=== PATIENT | female | born 1980 | race Caucasian/White ===

== ENCOUNTER 2018-03-10 18:42 | Emergency (ER) | payer SELFPAY ==
[2018-03-10 19:23] VITALS: O2SAT 98
[2018-03-10] MEDS ORDERED: KETOROLAC TROMETHAMINE INJ 60 MG/2 ML VIAL IM ONE (19:35)
[2018-03-10] MEDS ORDERED: ORPHENADRINE CITRATE 30 MG/ML AMP IV ONE (19:36)
[2018-03-10] MEDS ORDERED: MORPHINE SULFATE INJ 10 MG/ML VIAL IM ONE (19:36)
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
[2018-03-10] MEDS: DEXAMETHASONE INJ 10 MG/ML VIAL PO ONE ×2 (19:52→19:54)
[2018-03-10] MEDS ORDERED: ORPHENADRINE CITRATE 30 MG/ML AMP IM ONE (19:53)
[2018-03-10 20:24] VITALS: BP 151/98; TEMP 97.8
== END 2018-03-10 20:24 | disposition home or self-care (01) ==
LOC: ER 18:42
DX: M54.41 Lumbago with sciatica, right side (principal); K21.9 Gastro-esophageal reflux disease without esophagitis
CPT/HCPCS: J1100; J1885; J2270; J2360